=== PATIENT | female | born 1975 | race Caucasian/White ===

== ENCOUNTER 2019-03-09 13:48 | Inpatient (IN) | payer OTHER ==
[2019-03-09] VITALS (19 sets, daily range): BP systolic 102–151; BP diastolic 42–96
[~2019-03-09] VITALS: Ht 165.1 cm; Wt 60.4 kg
[2019-03-09] MEDS ORDERED: ALBUTEROL SULF 2.5 MG/0.5ML(0.5%) NEB SOLN ONE (13:57)
[2019-03-09] MEDS ORDERED: SODIUM BICARBONATE 8.4 % INJ 50ML VIAL IV ONE ×2 (14:00→15:00)
[2019-03-09] MEDS ORDERED: methylPREDNISolone SOD SUCC 125 MG/2 ML VL IV ONE (14:00)
[2019-03-09] MEDS: ALBUTEROL SULF 2.5 MG/0.5ML(0.5%) NEB SOLN NEB ONE ×2 (14:00→14:15)
[2019-03-09] MEDS ORDERED: SODIUM CHLORIDE 0.9% 1,000 ML IV ONE (14:00)
[2019-03-09] MEDS ORDERED: MIDAZOLAM DRIP 50 mg/50mL 50 ML IV ONE (14:08)
[2019-03-09] MEDS: NOREPINEPHRINE 8 MG/250ML KIT 250 ML IV SCH ×3 (14:26→19:57)
[2019-03-09] MEDS ORDERED: NOREPINEPHRINE 8 MG/250ML KIT 250 ML IV ONE (14:34)
[2019-03-09 14:38] LABS: Basophils # (auto) 0.1 uL; Basophils % (auto) 0.6 % (0.0-2.0); Eosinophils # (auto) 0.7 uL; Neutrophils # (auto) 5.5 uL; White Blood Cell 12.7 10^3/uL (4.4-10.8)
[2019-03-09 14:42] LABS: Eosinophils % (auto) 5.8 % (0.0-7.0); Hematocrit 39.1 % (36.0-46.0); Hemoglobin 12.8 g/dL (12.2-16.2); Lymphocytes # (auto) 5.8 uL; Lymphocytes % (auto) 45.9 % (10.0-50.0); Mean Corpuscular Hgb Conc. 32.6 g/dL (32.0-36.0); Mean Corpuscular Volume 107.4 fL (80.0-100.0); Monocytes # (auto) 0.6 uL; Monocytes % (auto) 4.4 % (0.0-12.0); Neutrophils % (auto) 43.3 % (37.0-80.0); Nucleated Red Blood Cells % 0.3 %; Red Blood Cells 3.64 10^6/uL (4.0-5.20)
[2019-03-09 15:01] LABS: Albumin 3.1 g/dL (3.4-5.0); Calcium 7.6 mg/dL (8.5-10.1); Lactic Acid w/Reflex 7.9 mmol/L (0.4-2.0)
[2019-03-09 15:01] LABS: Urine Bacteria NONE SEEN /hpf (None Seen); Urine Blood 2+ /uL (Negative); Urine Specific Gravity 1.013 (1.001-1.035); Urine WBC 26 /hpf (0 - 5)
[2019-03-09 15:08] LABS: Bilirubin, Total 0.2 mg/dL (0.2-1.0); Total Protein 6.5 g/dL (6.4-8.2)
[2019-03-09 15:28] LABS: Platelet Count (auto) 477 10^3/uL (140-450)
[2019-03-09] MEDS: MIDAZOLAM DRIP 50 mg/50mL 50 ML IV SCH ×2 (15:51→19:56)
[2019-03-09] MEDS ORDERED: SODIUM BICARB 50ML SYR 150 ML in SODIUM CHLORIDE 0.9% 1,000 ML IV ONE (16:00)
[2019-03-09] MEDS: PROPOFOL 100 ML IV SCH ×2 (16:15→22:21)
[2019-03-09 17:34] LABS: Alcohol, Urine < 3.0 mg/dL (0-5); Amphetamine Screen, Urine NEGATIVE (NEGATIVE); Barbiturate Scree,Urine NEGATIVE (NEGATIVE); Benzodiazephine Screen, Urine NEGATIVE (NEGATIVE); Cannabinoid Screen, Urine NEGATIVE (NEGATIVE); Cocaine Screen, Urine NEGATIVE (NEGATIVE); Opiate Scree,Urine POSITIVE (NEGATIVE); Phencyclidine Screen, Urine NEGATIVE (NEGATIVE)
[2019-03-09] MEDS ORDERED: MORPHINE SULF INJ 2 MG/ML SYRINGE 1ML IV PRN ×2 (19:15→19:30)
[2019-03-09] MEDS ORDERED: PROMETHAZINE HCL 25 MG/ML 1ML IV PRN (19:15)
[2019-03-09] MEDS ORDERED: MORPHINE SULFATE 4 MG/ML SYR/VIAL IV PRN (19:15)
[2019-03-09] MEDS ORDERED: NITROGLYCERIN 0.4 MG SL TAB SL PRN (19:15)
[2019-03-09] MEDS ORDERED: DEXTROSE (50%) 50ML SYRG IV PRN (19:15)
[2019-03-09] MEDS: SODIUM CHLORIDE 0.9% 1,000 ML IV SCH (19:29)
--- NOTE | 2019-03-09 20:15 | NUR ---
arrival note RECEIVED PT FROM ER VENTED AND ON SEDATION. RECEIVED PT S/P CPR WITH HYPOTHERMIC COOLING. VS ON ADMISSION, TEMP 89.7 RECTALLY, HR 85, RR 32, SPO2 100%, BP 145/65. RECEIVED PT WITH RT FEMORAL TLC, RT REECE IO, LFT FOREARM 20 AND RIGHT AC 20 . IV SITES BENIGN. RECEIVED PT WITH RT NARE NGT. ATTACHED TO LIS. F/C DRAINING TO GRAVITY. SKIN INTACT. BED LOCKED AND IN LOWEST POSITION, SAFETY PRECAUTIONS IN PLACE. SUCTION AND BVM AT BEDSIDE. WILL MONITOR PT CAREFULLY.
--- NOTE | 2019-03-09 20:47 | NUR ---
respiratory rate in the high 30's, Pt maxed on propofol and versed. hospitalist paged at this time.
[2019-03-09] MEDS ORDERED: fentaNYL Drip 2500mCg/250mlNS 250 ML IV ONE (21:14)
[2019-03-09] MEDS: fentaNYL Drip 2500mCg/250mlNS 250 ML IV SCH (21:37)
--- NOTE | 2019-03-09 21:39 | NUR ---
belongings 2 GOLD NECKLACES REMOVED FROM PT. GIVEN TO DAUGHTER ARIANA. PT BELONGING SHEET SIGNED BY DAUGHTER. UNABLE TO REMOVE 2 GOLD [place] RINGS ON RING FINGER AT THIS TIME.
[2019-03-09] MEDS ORDERED: MONT10TA34 PO (23:42)
[2019-03-09] MEDS ORDERED: FLUT500M2 INH (23:42)
[2019-03-09] MEDS ORDERED: NIC21P TOP (23:42)
[2019-03-09] MEDS ORDERED: ALBU2TAB4 PO (23:42)
[2019-03-09] MEDS ORDERED: ESCI10TA53 PO (23:42)
--- NOTE | 2019-03-09 23:42 | NUR ---
MED REC PT RECEIVING NICOTINE PATCHA T 14 MG DOSE. INPUT OPTION FOR 21 MG. WILL NOTE TO DAY SHIFT TO INFORM MD OF HOME MED DOSE.
[2019-03-10] VITALS (95 sets, daily range): BP systolic 83–187; BP diastolic 33–107
[2019-03-10] MEDS: IPRATROPIUM BROM 0.5 MG/2.5ML INH SOL NEB SCH ×5 (00:08→23:55)
[2019-03-10] MEDS: ALBUTEROL SULF 2.5 MG/0.5ML(0.5%) NEB SOLN NEB SCH ×5 (00:08→23:55)
--- NOTE | 2019-03-10 00:22 | NUR ---
TIDAL VOLUME INCREASED TO 500 PER IRAM STUART.
[2019-03-10] MEDS: SODIUM CHLORIDE 0.9% 1,000 ML IV SCH ×2 (00:46→07:40)
[2019-03-10] MEDS: MIDAZOLAM DRIP 50 mg/50mL 50 ML IV SCH ×5 (00:46→22:00)
[2019-03-10] MEDS ORDERED: MEPERIDINE HCL (25 MG/ML) 1ML VIAL ONE (01:38)
[2019-03-10] MEDS ORDERED: MORPHINE SULF INJ 2 MG/ML SYRINGE 1ML IV PRN (02:00)
[2019-03-10 04:26] LABS: Basophils # (auto) 0 uL; Basophils % (auto) 0.1 % (0.0-2.0); Eosinophils # (auto) 0 uL; Hemoglobin 13.2 g/dL (12.2-16.2); White Blood Cell 13.6 10^3/uL (4.4-10.8)
[2019-03-10 04:27] LABS: Hematocrit 39.3 % (36.0-46.0); Lymphocytes # (auto) 0.7 uL; Lymphocytes % (auto) 5.4 % (10.0-50.0); Mean Corpuscular Hemoglobin 35.1 pg (28.0-32.0); Mean Corpuscular Hgb Conc. 33.6 g/dL (32.0-36.0); Mean Corpuscular Volume 104.4 fL (80.0-100.0); Monocytes # (auto) 0.4 uL; Monocytes % (auto) 2.7 % (0.0-12.0); Neutrophils # (auto) 12.5 uL; Neutrophils % (auto) 91.8 % (37.0-80.0); Platelet Count (auto) 377 10^3/uL (140-450); Red Blood Cells 3.77 10^6/uL (4.0-5.20); Red Cell Distribution Width 15.2 % (11.8-14.3)
[2019-03-10 04:42] LABS: Albumin 3.3 g/dL (3.4-5.0); BUN/Creatinine Ratio 17.3; Calcium 7.5 mg/dL (8.5-10.1); Potassium 3.8 mmol/L (3.5-5.1)
[2019-03-10 04:45] LABS: Bilirubin, Total 0.4 mg/dL (0.2-1.0); Total Protein 6.6 g/dL (6.4-8.2)
--- NOTE | 2019-03-10 05:45 | NUR ---
BATHING PT GIVEN CHG BATH, GOWN CHANGE. PT TOLERATED WELL. SUCTION TUBING AND CANISTER CHANGED AT THIS TIME. PT REPOSITIONED FOR SAFETY AND COMFORT. WILL CONTINUE WITH CARE.
[2019-03-10] MEDS: InsuLIN REG 1unit/0.01ml Soln (100units/ml) SC SCH ×5 (06:00→23:56)
[2019-03-10] MEDS: ACCU-CHEK COMFORT CURVE STRIP VI SCH ×5 (06:11→23:54)
[2019-03-10] MEDS: methylPREDNISolone SOD SUCC 40 MG/ML VL IV SCH ×5 (06:12→23:54)
[2019-03-10] MEDS: MEPERIDINE HCL (25 MG/ML) 1ML VIAL IV PRN ×5 (06:13→23:43)
[2019-03-10] MEDS: PROPOFOL 100 ML IV SCH ×4 (06:14→20:29)
[2019-03-10] MEDS: cefTRIAXone 1GM/50ML D5W 50 ML IV SCH (08:46)
[2019-03-10] MEDS: ENOXAPARIN SOD 40 MG/0.4 ML SYRINGE SC SCH (10:06)
[2019-03-10] MEDS: fentaNYL Drip 2500mCg/250mlNS 250 ML IV SCH ×2 (11:09→21:42)
[2019-03-10 11:50] LABS: INR 1.02 (0.9-1.15); Partial Thromboplastin Time 27.6 sec (23.64-32.05)
--- NOTE | 2019-03-10 13:20 | NUR ---
DR. SZYMANSKI HERE TO SEE PATIENT. SEE MD NOTES AND EMR FOR ANY NEW ORDERS.
--- NOTE | 2019-03-10 14:23 | NUR ---
FAXED TRANSFER ORDER TO [facility]
--- NOTE | 2019-03-10 15:18 | NUR ---
FAMILY AT BEDSIDE, UPDATED ON POC. ALL AWARE OF THE TRANSFER ORDER TO [facility].
--- NOTE | 2019-03-10 15:34 | NUR ---
INGRED FROM [facility] CALLED AND STATED THAT [facility] IS GOING TO AUTHORIZE PATIENTS STAY FOR TODAY DUE TO PATIENT STILL BEING ON HYPOTHERMIA. AUTHORIZATION # [id number].
--- NOTE | 2019-03-10 16:16 | NUR ---
PRICILLA TRANSFER RN AT [facility] WILL NOT TRANSFER PT AT THIS TIME CITING IT IS AGAINST THEIR HYPOTHERMIA POLICY. SHE IS AUTHORIZING STAY
[2019-03-10] MEDS: D5W/SOD CHL 0.45% 1,000 ML IV SCH (17:20)
[2019-03-10 17:46] LABS: BUN/Creatinine Ratio 24.4; Calcium 7.7 mg/dL (8.5-10.1); Potassium 3.3 mmol/L (3.5-5.1)
[2019-03-10] MEDS: BUDESONIDE (INHALATION) 0.5 MG/2 ML NEB NEB SCH (18:05)
--- NOTE | 2019-03-10 18:40 | NUR ---
ZOLL THERAPEUTIC HYPOTHERMIA REWARMING PHASE STARTED. UNIT TURNED TO STANDBY, TARGET TEMPERATURE OF 98.6, CONTROLLED RATE AT 0.5 DEGREES CELSIUS PER HOUR.
--- NOTE | 2019-03-10 19:00 | NUR ---
OPENING NOTE ASSUMED CARE OF PATIENT AT THIS TIME. REPORT RECEIVED FROM DAY SHIFT RN. POC REVIEWED. HEAD TO TOE ASSESSMENT COMPLETE, SEE INTERVENTION SPREADSHEET FOR COMPLETE DETAILS. RECEIVED PT ON HYPOTHERMIC TEMP REGULATION. PT ON WARMING PROTOCOL. PT 93.2 DEGREES RECTALLY AT SHIFT CHANGE. RECEIVED PT INTUBATED AND SEDATED. IV SITES BENIGN. PULSES PALPABLE. SUCTION AND BVM AT BEDSIDE. BED LOCKED AND IN LOWEST POSITION, SAFETY PRECAUTIONS IN PLACE. F/C DRAINING TO GRAVITY. NGT TO LIS. WILL MONITOR PT CAREFULLY.
[2019-03-10] MEDS: POTASSIUM CHL 20MEQ/100ML 100 ML IV SCH ×3 (19:42→23:19)
--- NOTE | 2019-03-10 20:03 | NUR ---
RESPIRATORY ASSESSMENT PT HAS COURSE INSPIRATORY WHEEZES, SATS 94% PT APPEARS TO HAVE INCREASE WOB. RT NOTIFIED.
[2019-03-10] MEDS ORDERED: IPRATROPIUM BROM 0.5 MG/2.5ML INH SOL NEB ONE (20:15)
[2019-03-10] MEDS ORDERED: ALBUTEROL SULF 2.5 MG/0.5ML(0.5%) NEB SOLN NEB ONE (20:15)
[2019-03-10] MEDS ORDERED: ALBUTEROL SULF 2.5 MG/0.5ML(0.5%) NEB SOLN ONE (20:28)
[2019-03-10] MEDS ORDERED: IPRATROPIUM BROM 0.5 MG/2.5ML INH SOL ONE (20:28)
--- NOTE | 2019-03-10 20:42 | NUR ---
LEVOPHED RESUMED PT BP 73/50 DURING WARMING PHASE. RESTARTED LEVO AT 5 MCG. WILL TITRATE NECESSARY.
--- NOTE | 2019-03-10 20:43 | NUR ---
RESPIRATORY RESPIRATORY TX GIVEN, SOLUMEDROL DOSE INCREASED TO 60 MG Q6.
--- NOTE | 2019-03-10 21:25 | NUR ---
SEDATION VACATION NOT APPROPRIATE AT THIS TIME. PT ON HYPOTHERMIA S/P CPR. PT NOT TOLERATED DECREASED TEMPERATURE AT THIS TIME. VS DIFFICULT TO OBTAIN D/T SHIVERING.
[2019-03-10] MEDS: FAMOTIDINE (10MG/ML) 2ML VL IV SCH (21:59)
[2019-03-10 22:51] LABS: BUN/Creatinine Ratio 20.9; Calcium 7.8 mg/dL (8.5-10.1); Potassium 3.3 mmol/L (3.5-5.1)
[2019-03-11] VITALS (103 sets, daily range): BP systolic 94–145; BP diastolic 40–82
[2019-03-11] MEDS: D5W/SOD CHL 0.45% 1,000 ML IV SCH ×3 (02:15→23:07)
[2019-03-11] MEDS: ALBUTEROL SULF 2.5 MG/0.5ML(0.5%) NEB SOLN NEB PRN ×3 (03:14→14:55)
--- NOTE | 2019-03-11 03:53 | NUR ---
BATHING/LINEN CHANGE PT GIVEN COMPLETE BED BATH WITH LINEN CHANGE. PT TOLERATED WELL. SKIN ASSESSED FOR INTEGRITY CHANGES, NONE NOTED. SUCTION TUBING AND CANISTER CHANGED AT THIS TIME. PT REPOSITIONED FOR SAFETY AND COMFORT. BED LOCKED AND IN LOWEST POSITION, SAFETY PRECAUTIONS MAINTAINED. WILL CONTINUE WITH CARE.
[2019-03-11 04:13] LABS: Eosinophils # (auto) 0 uL; Red Cell Distribution Width 15.5 % (11.8-14.3); White Blood Cell 24.8 10^3/uL (4.4-10.8)
[2019-03-11 04:16] LABS: Basophils # (auto) 0.1 uL; Basophils % (auto) 0.4 % (0.0-2.0); Hematocrit 35.4 % (36.0-46.0); Hemoglobin 11.8 g/dL (12.2-16.2); Lymphocytes # (auto) 0.5 uL; Lymphocytes % (auto) 2.2 % (10.0-50.0); Mean Corpuscular Hemoglobin 35.4 pg (28.0-32.0); Mean Corpuscular Hgb Conc. 33.4 g/dL (32.0-36.0); Mean Corpuscular Volume 105.9 fL (80.0-100.0); Neutrophils # (auto) 23.2 uL; Neutrophils % (auto) 93.4 % (37.0-80.0); Platelet Count (auto) 342 10^3/uL (140-450); Red Blood Cells 3.34 10^6/uL (4.0-5.20)
[2019-03-11 04:30] LABS: Calcium 7.5 mg/dL (8.5-10.1); Potassium 3.6 mmol/L (3.5-5.1)
[2019-03-11 04:32] LABS: BUN/Creatinine Ratio 23.2
[2019-03-11] MEDS: MIDAZOLAM DRIP 50 mg/50mL 50 ML IV SCH ×5 (04:56→19:48)
--- NOTE | 2019-03-11 05:14 | NUR ---
TARGET TEMP REACHED AT THIS TIME. 98.6
[2019-03-11] MEDS: ALBUTEROL SULF 2.5 MG/0.5ML(0.5%) NEB SOLN NEB SCH ×4 (05:53→21:48)
[2019-03-11] MEDS: IPRATROPIUM BROM 0.5 MG/2.5ML INH SOL NEB SCH ×4 (05:53→21:48)
[2019-03-11] MEDS: BUDESONIDE (INHALATION) 0.5 MG/2 ML NEB NEB SCH ×2 (05:54→18:45)
[2019-03-11] MEDS: InsuLIN REG 1unit/0.01ml Soln (100units/ml) SC SCH ×3 (06:00→17:35)
[2019-03-11] MEDS: ACCU-CHEK COMFORT CURVE STRIP VI SCH ×3 (06:00→17:35)
[2019-03-11] MEDS: methylPREDNISolone SOD SUCC 40 MG/ML VL IV SCH ×3 (06:00→17:34)
[2019-03-11] MEDS: NOREPINEPHRINE 8 MG/250ML KIT 250 ML IV SCH (06:49)
--- NOTE | 2019-03-11 07:10 | NUR ---
Opening Shift Note Assumed care of patient, FROM NOC RN. PATIENT INTUBATED AND SEDATED SEE IV FLOW SHEET FOR DRIP INFORMATION. No S/S of distress/SOB or pain NOTED. BED IN LOW POSITION. Will continue to monitor for changes Q1hr and PRN.
[2019-03-11] MEDS: PROPOFOL 100 ML IV SCH ×3 (08:07→17:34)
[2019-03-11] MEDS: fentaNYL Drip 2500mCg/250mlNS 250 ML IV SCH ×2 (08:07→17:34)
--- NOTE | 2019-03-11 08:40 | NUR ---
AT BEDSIDE, UPDATED ON POC.
[2019-03-11] MEDS: cefTRIAXone 1GM/50ML D5W 50 ML IV SCH (09:43)
[2019-03-11] MEDS: ENOXAPARIN SOD 40 MG/0.4 ML SYRINGE SC SCH (09:44)
[2019-03-11] MEDS: FAMOTIDINE (10MG/ML) 2ML VL IV SCH ×2 (09:44→21:54)
--- NOTE | 2019-03-11 11:12 | NUR ---
WOUND CARE NOTE: Wound care in to see patient for skin integrity monitoring due to low Miguel A score of 11 and intubation status putting patient to high risk for skin breakdown. Patient is 43 y/o female with admitting diagnosis of Respiratory Failure, Pulmonary Arrest. Patient is resting in ICU bed in Rm 102. She's intubated, sedated and mechanically ventilated. Patient appears to be in no pain using Mayo Fernandez Faces Pain Scale. Skin assessment done with the assistance of patient's nurse, FILIPE Salvador. No wound noted, no pressure injury noted. Repositioned patient for comfort facing her Lt. side, redistributed pressure points with pillows. Patient tolerated well. FILIPE Salvador at bedside. RECOMMENDATION: BID/PRN cleaning and application of Barrier cream to sacral/buttocks as preventative per MD order, Dietary consult , frequent turning and repositioning schedule as condition permits, redistribute pressure points with pillows, elevate heels on pillows, continue monitoring by wound care while patient is mechanically ventilated and Miguel A score is below 18. Addendum: 03/11/19 at 1451 by Sita Grajeda RN Amended: Links added.
--- NOTE | 2019-03-11 12:46 | NUR ---
DR. AMOR HERE TO SEE PATIENT. SEE MD NOTES [facility] EMR FOR ANY NEW ORDERS.
--- NOTE | 2019-03-11 13:18 | NUR ---
DR. VILLARREAL HERE TO SEE PATIENT. SEE MD NOTES AND EMR FOR ANY NEW ORDERS.
--- NOTE | 2019-03-11 20:00 | NUR ---
YE HELD YE HELD TO CHECK PT'S NEURO STATUS.
--- NOTE | 2019-03-11 22:40 | NUR ---
DIPRIVAN RESTARTED PATIENT IS ON VERSED 13MG/HR AND FENTANYL 200MCG/HR. SHE IS HAVING DEEP BREATHING IN 20'S. SHE IS ON VENTILATOR PRESSURE CONTROL MODE.DIPRIVAN RESTARTED NOW.
[2019-03-12] VITALS (103 sets, daily range): BP systolic 86–170; BP diastolic 51–110
[2019-03-12] MEDS: methylPREDNISolone SOD SUCC 40 MG/ML VL IV SCH ×4 (00:13→17:51)
[2019-03-12] MEDS: ACCU-CHEK COMFORT CURVE STRIP VI SCH ×4 (00:13→18:08)
[2019-03-12] MEDS: InsuLIN REG 1unit/0.01ml Soln (100units/ml) SC SCH ×4 (00:15→18:00)
[2019-03-12] MEDS: MIDAZOLAM DRIP 50 mg/50mL 50 ML IV SCH ×5 (00:16→23:15)
[2019-03-12] MEDS: IPRATROPIUM BROM 0.5 MG/2.5ML INH SOL NEB SCH ×6 (02:17→22:28)
[2019-03-12] MEDS: ALBUTEROL SULF 2.5 MG/0.5ML(0.5%) NEB SOLN NEB SCH ×6 (02:17→22:28)
[2019-03-12] MEDS: PROPOFOL 100 ML IV SCH ×3 (05:43→22:24)
[2019-03-12 06:19] LABS: Basophils # (auto) 0 uL; Basophils % (auto) 0.2 % (0.0-2.0); Eosinophils # (auto) 0 uL; Hematocrit 32.2 % (36.0-46.0); Hemoglobin 10.7 g/dL (12.2-16.2)
[2019-03-12 06:21] LABS: Lymphocytes # (auto) 0.3 uL; Mean Corpuscular Hemoglobin 35.4 pg (28.0-32.0); Mean Corpuscular Hgb Conc. 33.2 g/dL (32.0-36.0); Mean Corpuscular Volume 106.5 fL (80.0-100.0); Monocytes # (auto) 0.4 uL; Monocytes % (auto) 2.4 % (0.0-12.0); Neutrophils # (auto) 16.6 uL; Neutrophils % (auto) 95.4 % (37.0-80.0); Nucleated Red Blood Cells % 0.1 %; Platelet Count (auto) 237 10^3/uL (140-450); Red Blood Cells 3.02 10^6/uL (4.0-5.20); Red Cell Distribution Width 15.8 % (11.8-14.3); White Blood Cell 17.4 10^3/uL (4.4-10.8)
[2019-03-12 06:35] LABS: Potassium 4.6 mmol/L (3.5-5.1)
--- NOTE | 2019-03-12 06:39 | NUR ---
Respiratory note: RECEIVED PATIENT ON V6 V200 VENT ORALLY INTUBATED WITH A 7.0 ETT SECURED VIA CONOR AT THE 24CM MARKING AT THE LIP, AND MECHANICALLY VENTILATED WITH THE CHARTED SETTINGS. SPO2 93%, LUNG SOUNDS COARSE WHEEZES T/O, NO SECRETIONS WHEN SUCTIONED. SKIN IS WARM/DRY TO THE TOUCH. THER IS A SMALL ABRASION ON THE CORNER OF THE RIGHT UPPER LIP. SKIN IS INTACT THROUGHOUT THE REST OF THE BODY. THERE IS A NGT IN THE RIGHT NARE AND SECURED TO THE NOSE. NO NEW AM CXR TO ASSESS. PATIENT IS SEDATED ON PROPOFOL, VERSED, AND FENTANYL DRIPS AND SHOWS NO RESPONSE TO VERBAL OR TACTILE STIMULI. SHE IS, HOWEVER, RESTLESS, WORKING TO BREATH, AND BREATHING WELL ABOVE THE SET RATE OF THE VENT. VENT PLUGGED INTO RED OUTLET AND ALL ALARMS ARE SET AND AUDIBLE. WILL CONTINUE TO ASSESS PATIENT WELL VENTILATOR FUNCTION. [email or web address] INLINE.
[2019-03-12 06:44] LABS: Albumin 2.6 g/dL (3.4-5.0); BUN/Creatinine Ratio 26.8; Bilirubin, Total 0.2 mg/dL (0.2-1.0); Calcium 8.1 mg/dL (8.5-10.1); Total Protein 6.2 g/dL (6.4-8.2)
--- NOTE | 2019-03-12 07:00 | NUR ---
REPORT RECEIVED FROM GUIDANCE ADVISER NURSE. PATIENT RESTING IN BED AT THIS TIME. RESPIRATIONS EVEN AND UNLABORED, INTUBATED AND SEDATED. NO SIGNS OF ACUTE DISTRESS NOTED. BED IN LOW POSITION. WILL CONTINUE TO MONITOR.
[2019-03-12] MEDS: fentaNYL Drip 2500mCg/250mlNS 250 ML IV SCH ×2 (08:09→17:52)
[2019-03-12] MEDS: D5W/SOD CHL 0.45% 1,000 ML IV SCH (08:09)
--- NOTE | 2019-03-12 08:12 | NUR ---
DR Walter VILLARREAL AT BEDSIDE TO ASSESS PATIENT AND DISCUSS PLAN OF CARE. DISCONTINUE ZOLL AT THIS TIME. CONTINUE TO MONITOR TEMP AND RESTART IF NEEDED. PER MD PATIENT IS NOT STABLE FOR TRANSFER TODAY.
[2019-03-12] MEDS ORDERED: VANCOMYCIN 1GM/250ML 250 ML IV ONE (08:15)
[2019-03-12] MEDS ORDERED: VANCOMYCIN PER PHARMACY 0 MG IV SCH (08:15)
--- NOTE | 2019-03-12 08:20 | NUR ---
ZOLL DISCONTINUED AT THIS TIME. WILL CONTINUE TO MONITOR TEMP.
[2019-03-12] MEDS: VANCOMYCIN 500 MG in D5W 5% 100 ML IV SCH ×2 (08:55→21:13)
--- NOTE | 2019-03-12 09:06 | NUR ---
UNABLE TO DO SEDATION VACATION AT THIS TIME DUE TO PATIENT VENTILATOR SETTINGS AND PATIENT FIGHTING VENTILATOR ON CURRENT SEDATIONS. WILL CONTINUE TO MONITOR AND DECREASE SEDATIONS TOLERATED PER PROTOCOL. Addendum: 03/12/19 at 0919 by Rain Fernandez RN Amended: Links added.
--- NOTE | 2019-03-12 09:20 | NUR ---
PATIENTS TEMP 99.3 RECTAL, APPLIED ICE PACKS WILL CONTINUE TO MONITOR.
[2019-03-12] MEDS: BUDESONIDE (INHALATION) 0.5 MG/2 ML NEB NEB SCH ×2 (09:40→22:29)
[2019-03-12] MEDS: ENOXAPARIN SOD 40 MG/0.4 ML SYRINGE SC SCH (10:13)
[2019-03-12] MEDS: FAMOTIDINE (10MG/ML) 2ML VL IV SCH ×2 (10:13→21:13)
--- NOTE | 2019-03-12 10:13 | NUR ---
NUTRITION ASSESSMENT NOTES Please refer to link notes of nutrition screen form filed under the intervention section of the plan of care for further details. Est. Needs: 1500 kcal to 1800 kcal (25-30 kcal/kgBW), 60 gms to 72 gms pro (1.0-1.2 gms/kgBW). Will continue to monitor pertinent labs and reassess nutrient need prn Thank you. Addendum: 03/12/19 at [address] Amended: Links added.
--- NOTE | 2019-03-12 11:35 | NUR ---
DR Honey AGRAWAL AT BEDSIDE TO ASSESS PATIENT AND DISCUSS PLAN OF CARE. NO NEW ORDERS AT THIS TIME.
[2019-03-12] MEDS: PIPERACILLIN-TAZOB 3.375GM 100 ML IV SCH ×3 (11:40→23:59)
[2019-03-12] MEDS: NOREPINEPHRINE 8 MG/250ML KIT 250 ML IV SCH (15:53)
--- NOTE | 2019-03-12 19:45 | NUR ---
Opening Shift Note Assumed care of patient, intubated and sedated. Breathing on ventilator, PC mode via ETT, occasional double triggering with accessory muscle used, lungs sound CTA, diminished bases, No S/S of distress/SOB or pain. NG at right nare, positive placement, connected to LIS, greenish drainages in the tubing, NG tape changed. TLC at right femoral, CDI site, due to dressing 03/11, infusing with sedative medicines and main IV fluid. 20G saline lock at right AC and left FA, flushed well, CDI site, both due to change new dressing, will change d/s x1 and d/c one IV. Isaac's catheter hung to gravity with yellowish urine with some sediments. Bed in low position, fall and safety precaution in place, all alarms are audible. No family at bedside at this time, will continue to monitor for changes Q1hr and PRN.
--- NOTE | 2019-03-12 22:00 | NUR ---
Condition update Condition and v/s stable, breathing under controlled with sedation medicines and ventilator. Small amount of thick creamy yellowish sputum, positive cough reflex. Family at bedside. Continue care.
[2019-03-13] VITALS (79 sets, daily range): BP systolic 111–140; BP diastolic 67–89
[2019-03-13] MEDS: methylPREDNISolone SOD SUCC 40 MG/ML VL IV SCH ×4 (00:09→18:23)
[2019-03-13] MEDS: ACCU-CHEK COMFORT CURVE STRIP VI SCH ×2 (00:10→05:50)
--- NOTE | 2019-03-13 01:30 | NUR ---
Condition update/ fever Pt's condition and v/s stable, mild fever 99.9-100.0F Rectally. Put ice packs and cooling measures for Pt, will do bed bath later. Family at bedside, received Pt's update and POC. Continue care.
[2019-03-13] MEDS: ALBUTEROL SULF 2.5 MG/0.5ML(0.5%) NEB SOLN NEB SCH ×5 (02:05→18:17)
[2019-03-13] MEDS: IPRATROPIUM BROM 0.5 MG/2.5ML INH SOL NEB SCH ×5 (02:05→18:17)
--- NOTE | 2019-03-13 03:05 | NUR ---
Patient bathe/linen change Patient given complete bath with CHG wipes. Skin integrity assessed for any changes, no new changes. Sacrum intact and no redness, z-guard applied. Optifoam for preventative applied. Complete linens changed. Isaac's cath care done, mouth care done. Passive ROM done. Temp after bathe stayed the same 99.5F rectally. Patient repositioned to prevent pressure ulcer. Addendum: 03/13/19 at 0333 by Brianna Edwards RN Pt able to lie flat for 15mins and turned to sides without desaturation, no audible wheezing, breathing controlled with ventilator and sedation medicines.
[2019-03-13 04:00] LABS: Basophils # (auto) 0 uL; Eosinophils # (auto) 0 uL; Monocytes # (auto) 0.5 uL
[2019-03-13 04:02] LABS: Basophils % (auto) 0.2 % (0.0-2.0); Hematocrit 34.2 % (36.0-46.0); Hemoglobin 11.2 g/dL (12.2-16.2); Lymphocytes # (auto) 0.3 uL; Lymphocytes % (auto) 2.2 % (10.0-50.0); Mean Corpuscular Hemoglobin 34.7 pg (28.0-32.0); Mean Corpuscular Hgb Conc. 32.8 g/dL (32.0-36.0); Neutrophils # (auto) 14.5 uL; Neutrophils % (auto) 94.6 % (37.0-80.0); Nucleated Red Blood Cells % 0.3 %; Platelet Count (auto) 232 10^3/uL (140-450); Red Blood Cells 3.23 10^6/uL (4.0-5.20); Red Cell Distribution Width 15.5 % (11.8-14.3); White Blood Cell 15.4 10^3/uL (4.4-10.8)
[2019-03-13 04:12] LABS: Potassium 4.4 mmol/L (3.5-5.1)
[2019-03-13 04:13] LABS: Albumin 2.8 g/dL (3.4-5.0); BUN/Creatinine Ratio 27.7; Calcium 8.5 mg/dL (8.5-10.1)
[2019-03-13] MEDS: D5W/SOD CHL 0.45% 1,000 ML IV SCH ×3 (04:15→14:40)
[2019-03-13 04:16] LABS: Bilirubin, Total 0.6 mg/dL (0.2-1.0); Total Protein 6.3 g/dL (6.4-8.2)
[2019-03-13] MEDS: MIDAZOLAM DRIP 50 mg/50mL 50 ML IV SCH ×2 (05:49→10:14)
[2019-03-13] MEDS: PIPERACILLIN-TAZOB 3.375GM 100 ML IV SCH (05:50)
[2019-03-13] MEDS: InsuLIN REG 1unit/0.01ml Soln (100units/ml) SC SCH ×2 (06:03)
--- NOTE | 2019-03-13 07:15 | NUR ---
Report received from FILIPE Love. Patient with low-grade temp at night. Assessed patient -see interventions.
[2019-03-13] MEDS: PROPOFOL 100 ML IV SCH (07:19)
[2019-03-13] MEDS: fentaNYL Drip 2500mCg/250mlNS 250 ML IV SCH (09:20)
[2019-03-13] MEDS: VANCOMYCIN 500 MG in D5W 5% 100 ML IV SCH (09:21)
[2019-03-13] MEDS: FAMOTIDINE (10MG/ML) 2ML VL IV SCH (10:09)
[2019-03-13] MEDS: ENOXAPARIN SOD 40 MG/0.4 ML SYRINGE SC SCH (10:09)
[2019-03-13] MEDS ORDERED: MORPHINE SULF INJ 2 MG/ML SYRINGE 1ML IV PRN ×2 (10:15)
[2019-03-13] MEDS ORDERED: MEPERIDINE HCL (25 MG/ML) 1ML VIAL IV PRN (10:15)
[2019-03-13] MEDS: BUDESONIDE (INHALATION) 0.5 MG/2 ML NEB NEB SCH (10:29)
[2019-03-13] MEDS ORDERED: Nutren Pulmonary 1 Liter GT SCH (11:15)
--- NOTE | 2019-03-13 11:30 | NUR ---
I faxed updated clinical information to [facility] including MD progress notes, vitals, xrays, labs and medication list.
--- NOTE | 2019-03-13 12:00 | NUR ---
RT Transport Note: Patient transported to CT with RN Gisel Srinivasan. Patient transported to and from procedure on ventilator with previous ordered settings. Patient on monitor technician with alarms set and audible, ambu-bag/mask connected to 02 tank. Patient returned to room with no adverse reaction noted. Transport completed without incident.
[2019-03-13] MEDS ORDERED: METOCLOPRAMIDE HCL 5MG/ml INJ 2ml VIAL IV SCH (14:00)
[2019-03-13] MEDS ORDERED: CLINDAMYCIN 600MG IV 50 ML IV SCH (14:00)
--- NOTE | 2019-03-13 14:08 | NUR ---
I spoke with Dr. Núñez regarding the plan of care for this patient-she said patient is stable for transfer to [facility] and she will place the order.
[2019-03-13] MEDS ORDERED: Jevity 1.2 Cal/Fiber 1 Liter GT SCH (14:30)
--- NOTE | 2019-03-13 14:45 | NUR ---
Spoke with [facility] and updated them on patients status -waiting for bed assignment.
--- NOTE | 2019-03-13 15:33 | NUR ---
I called [facility] [phone] and spoke with data report analyst Iván-letting him know that patient has order to transfer to [facility] and that I needed to speak with the assigned casey saw operator. He said the assigned casey saw operator is Lee, he transferred me to Lee's data report analyst Luis. I let Luis know the same thing, that I would like to speak with the casey saw operator regarding the transfer to [facility].
--- NOTE | 2019-03-13 15:41 | NUR ---
Sedation vacation: Diprivan, fentanyl, and versed off for 2 hours, no response. Non-purposeful movements with eyes opening. Patient not breathing over ventilator. Patient placed on cooling measures for low-grade temperature and began shaking -versed and fentanyl turned back on for comfort measures.
--- NOTE | 2019-03-13 15:45 | NUR ---
I received a call from the [facility] [employer] Lee, she is aware of the transfer order for this patient and told me they are working on a bed at [facility] for this member, they will call when a bed becomes available.
--- NOTE | 2019-03-13 17:11 | NUR ---
I spoke with nurse Leida regarding the status of the transfer to [facility], she received a call from [facility] letting her know that they have a bed for patient and that transport was coming at 1930.
--- NOTE | 2019-03-13 17:50 | NUR ---
Patient pickup time to [place] at 1930: Report given to FILIPE Mustafa at [facility] ([phone]). Patient going to room 232, receiving physician is Dr. Sullivan. Chart faxed to [facility] at [phone]. Chart and CD in folder for transport -ready to go and signed and filled by and RN. Addendum: 03/13/19 at 1754 by Leida Segovia RN Family aware.
--- NOTE | 2019-03-13 19:18 | NUR ---
Report given to FILIPE Leung.
--- NOTE | 2019-03-13 19:35 | NUR ---
EMS here to pick patient up- report given to CCT nurse.
--- NOTE | 2019-03-13 19:56 | NUR ---
PT TAKEN TO [facility] AT THIS TIME. PT OFF UNIT
[2019-03-13] MEDS ORDERED: fentaNYL Drip 2500mCg/250mlNS 250 ML IV SCH (21:10)
== END 2019-03-13 19:55 | disposition short-term general hospital (02) | DRG 870 ==
LOC: EDBD 13:55 → ER 13:55 → TELE 13:56 → ICU WEST 20:12
PROVIDERS: ADMIT Internal Medicine; ATTEND Internal Medicine
PROC: 02HV33Z Insertion of Infusion Device into Superior Vena Cava, Percutaneous Approach (ICD-10-PCS; principal; 2019-03-09)
PROC: 5A1955Z Respiratory Ventilation, Greater than 96 Consecutive Hours (ICD-10-PCS; 2019-03-09)
DX: A41.9 Sepsis, unspecified organism (principal); G92 Toxic encephalopathy; I46.9 Cardiac arrest, cause unspecified; J96.00 Acute respiratory failure, unspecified whether with hypoxia or hypercapnia; E87.4 Mixed disorder of acid-base balance; G93.1 Anoxic brain damage, not elsewhere classified; J21.9 Acute bronchiolitis, unspecified; J45.902 Unspecified asthma with status asthmaticus; J98.11 Atelectasis; T17.590A Other foreign object in bronchus causing asphyxiation, initial encounter; N39.0 Urinary tract infection, site not specified; X58.XXXA Exposure to other specified factors, initial encounter; F17.210 Nicotine dependence, cigarettes, uncomplicated; F41.9 Anxiety disorder, unspecified; R73.9 Hyperglycemia, unspecified; I49.3 Ventricular premature depolarization; K80.20 Calculus of gallbladder without cholecystitis without obstruction; Z81.8 Family history of other mental and behavioral disorders; Z82.5 Family history of asthma and other chronic lower respiratory diseases; Y93.89 Activity, other specified; Y92.89 Other specified places as the place of occurrence of the external cause; Y99.8 Other external cause status; Z79.51 Long term (current) use of inhaled steroids
CPT/HCPCS: 36415; 36556; 36600; 51702; 70450; 71045; 71250; 74176; 80048; 80053; 80307; 81001; 81025; 82805; 82962; 83036; 83605; 84484; 85025; 85379; 85610; 85730; 87040; 87070; 87077; 87081; 87186; 87205; 93005; 94002; 94003; 94640; 94644; 96365; 96375; A4565; A4618; G0378; J0696; J1815; J2250; J2543; J2704; J3480; J3490; J7060